=== PATIENT | female | born 1985 | race African-American/Black ===

== ENCOUNTER 2024-06-25 12:28 | Emergency (ER) | payer OTHER ==
[2024-06-25 12:42] VITALS: TEMP 98.3; BMI 21.5
[2024-06-25] MEDS ORDERED: ONDANSETRON 4 MG/2 ML VIAL ONE (12:51)
[2024-06-25] MEDS: SODIUM CHLORIDE 1,000 ML IV STA (13:04)
[2024-06-25] MEDS: ONDANSETRON 4 MG/2 ML VIAL IVPB ONE (13:04)
[2024-06-25 13:15] LABS: BASO % 0.2 % (0-2.0); HEMATOCRIT 32.9 % (32.4-45.2); HEMOGLOBIN 10.9 GM/dL (10.7-15.3); LYMPH % 5.8 % (8-40); MCH 28.5 pg (25.7-33.7); MCHC 33.2 g/dl (32.0-36.0); MEAN CELL VOLUME 86.1 fl (80-96); MEAN PLT VOLUME 7.4 fl (7.5-11.1); MONO % 3.4 % (3.8-10.2); NEUT % 90.6 % (42.8-82.8); PLATELET COUNT 422 10^3/uL (134-434); RBC 3.83 M/mm3 (3.60-5.2); RDW 13.8 % (11.6-15.6); WHITE BLOOD COUNT 13.3 K/mm3 (4.0-10.0)
[2024-06-25 13:32] LABS: POTASSIUM 3.6 mmol/L (3.5-5.1)
[2024-06-25 13:34] LABS: CALCIUM 9.5 mg/dL (8.5-10.1)
[2024-06-25 13:35] LABS: ALBUMIN 3.9 g/dl (3.4-5.0); BLOOD UREA NITROGEN 7.5 mg/dL (7-18); MAGNESIUM 1.7 mg/dL (1.8-2.4)
[2024-06-25 13:38] LABS: CREATININE 0.8 mg/dL (0.55-1.3); PHOSPHOROUS 1.4 mg/dL (2.5-4.9)
[2024-06-25] MEDS ORDERED: HALOPERIDOL LACTATE 5 MG/ML ONE (13:38)
[2024-06-25 13:39] LABS: BILIRUBIN,TOTAL 0.5 mg/dL (0.2-1); TOT PROT 6.8 g/dl (6.4-8.2)
[2024-06-25] MEDS: HALOPERIDOL DECANOATE 100 MG/ML IM ONE (13:41)
[2024-06-25] MEDS ORDERED: NAPH,MB-DB/K PH,MBDB POWDER PACKET ONE (13:45)
[2024-06-25] MEDS ORDERED: MAGNESIUM SULFATE IN WATER 2 GM/50 ML IVPB IVPB ONE (13:45)
[2024-06-25] MEDS: NAPH,MB-DB/K PH,MBDB POWDER PACKET PO ONE (13:57)
[2024-06-25] MEDS: MAGNESIUM SULFATE IN WATER 2 GM/50 ML IVPB IVPB ONE (13:57)
[2024-06-25 14:35] LABS: EPI CELLS 12 /uL (0-25.1); HCG,QUALITATIVE URINE Negative; HYALINE CASTS 1 /uL (0-3.1); URINE APPEARANCE CLEAR; URINE BACTERIA 8 /uL (0-1359); URINE BILIRUBIN NEGATIVE (NEGATIVE); URINE COLOR YELLOW; URINE GLUCOSE (UA) NEGATIVE (NEGATIVE); URINE KETONE 3+ (NEGATIVE); URINE LEUK ESTERASE NEGATIVE (NEGATIVE); URINE NITRITE NEGATIVE (NEGATIVE); URINE PROTEIN NEGATIVE (NEGATIVE); URINE RBC 12 /uL (0-23.9); URINE WBC 5 /uL (0-25.8)
[2024-06-25 15:44] VITALS: BP 110/71; PULSE 94; RESP 16
== END 2024-06-25 16:21 | disposition home or self-care (01) ==
LOC: JER 12:28
PROC: 3E033GC Introduction of Other Therapeutic Substance into Peripheral Vein, Percutaneous Approach (ICD-10-PCS; principal; 2024-06-25)
PROC: 3E033GC Introduction of Other Therapeutic Substance into Peripheral Vein, Percutaneous Approach (ICD-10-PCS; 2024-06-25)
PROC: 3E033GC Introduction of Other Therapeutic Substance into Peripheral Vein, Percutaneous Approach (ICD-10-PCS; 2024-06-25)
PROC: 3E0337Z Introduction of Electrolytic and Water Balance Substance into Peripheral Vein, Percutaneous Approach (ICD-10-PCS; 2024-06-25)
DX: R11.2 Nausea with vomiting, unspecified (principal)
CPT/HCPCS: 36415; 80053; 81003; 83690; 83735; 84100; 84703; 85025; 99284-25

== ENCOUNTER 2025-06-27 11:18 | Emergency (ER) | payer OTHER ==
[2025-06-27 11:26] VITALS: BP 114/84; PULSE 71; RESP 18; TEMP 98.3; BMI 23.1
== END 2025-06-27 13:53 | disposition left against medical advice (07) ==
LOC: JER 11:18
DX: Z53.21 Procedure and treatment not carried out due to patient leaving prior to being seen by health care provider (principal)
CPT/HCPCS: 99281-25